=== PATIENT | female | born 1935 | race African-American/Black ===

== ENCOUNTER 2016-10-08 08:07 | Emergency (ER) | payer MEDICARE ==
[~2016-10-08] VITALS: Ht 167.6 cm; Wt 110.0 kg
[2016-10-08] MEDS ORDERED: SPIR25TA4 PO (08:12)
[2016-10-08] MEDS ORDERED: AMLO2.5T45 PO (08:12)
[2016-10-08] MEDS ORDERED: LOSA25TA12 PO (08:12)
[2016-10-08] MEDS ORDERED: HYDROCODONE/ACETAMINOPHEN 5/325MG TABLET PO ONE (10:00)
[2016-10-08 10:13] VITALS: BP 147/79
== END 2016-10-08 11:12 | disposition home or self-care (01) ==
LOC: ER 08:58
DX: S93.402A Sprain of unspecified ligament of left ankle, initial encounter (principal); S80.02XA Contusion of left knee, initial encounter; S80.01XA Contusion of right knee, initial encounter; I10 Essential (primary) hypertension; Z88.4 Allergy status to anesthetic agent; W17.89XA Other fall from one level to another, initial encounter; Y93.89 Activity, other specified; Y92.89 Other specified places as the place of occurrence of the external cause; Y99.8 Other external cause status
CPT/HCPCS: 73610; 99284

== ENCOUNTER → 2020-04-11 | Outpatient (CLI) | payer MEDICARE, BC ==
[~2020-04-11] MED LIST: AMLO2.5T45 PO; LOSA25TA26 PO; SPIR25TA6 PO
== END | disposition home or self-care (01) ==
LOC: LAB 10:26
PROVIDERS: ATTEND Thoracic Surgery (Cardiothoracic Vascular Surgery)
DX: Z01.812 Encounter for preprocedural laboratory examination (principal)
CPT/HCPCS: 36415; 82565; 84520

== ENCOUNTER → 2020-04-16 | Outpatient (CLI) | payer MEDICARE, BC ==
[~2020-04-16] MED LIST changes: +IOHEXOL-300 100 ML BOTTLE ONE
== END | disposition home or self-care (01) ==
LOC: RAD 07:33
PROVIDERS: ATTEND Thoracic Surgery (Cardiothoracic Vascular Surgery)
DX: C80.1 Malignant (primary) neoplasm, unspecified (principal)
CPT/HCPCS: 71260; Q9967